=== PATIENT | female | born 1980 | race Caucasian/White ===

== ENCOUNTER 2018-01-21 15:41 | Outpatient (REF) | payer BC, SELFPAY ==
--- NOTE | 2018-01-21 15:00 | ENDO_PTH ---
PATIENT: Lina Glass LOC: [facility] U#:[id number] AGE/SX: 37/F ROOM: RE01/21/[address]: Jocelyne Mendoza : 1980 BED: DIS: 01/21/2018 SPEC #: [id number] RECD: 01/21/18 17:47 STATUS: ALEXANDRA REQ #: [id number] RALPH: 01/21/18 15:[address]: Jocelyne Mendoza DEPT: Surgical Specimen RECD BY: Eboni Bansal ENTERED: 01/21/18 17:49 SP TYPE: Endo OTHR DR: None Tissues: 1 - ENDOCERVICAL BX/CURRETTE 2 - CERVICAL BIOPSY 3 - CERVICAL BIOPSY Procedures: GROSS AND MICRO LEVEL 4 Comments: [id number]
== END 2018-01-21 15:42 ==
LOC: LBN 15:41
PROVIDERS: Visit Provider Obstetrics & Gynecology Gynecology
DX: N72 Inflammatory disease of cervix uteri (principal); N87.9 Dysplasia of cervix uteri, unspecified; R87.610 Atypical squamous cells of undetermined significance on cytologic smear of cervix (ASC-US)
CPT/HCPCS: 88305

== ENCOUNTER 2019-03-21 16:59 | Outpatient (REF) | payer OTHER, SELFPAY ==
--- NOTE | 2019-03-21 16:00 | PAPFT_PTH ---
PATIENT: Lina Glass LOC: [facility] U#:[id number] AGE/SX: 38/F ROOM: RE03/21/[address]: Chuy Bennett : 1980 BED: DIS: 03/21/2019 SPEC #: [id number] RECD: 03/21/19 18:38 STATUS: ALEXANDRA REQ #: [id number] RALPH: 03/21/19 16:[address]: Chuy Bennett DEPT: [facility] Cytology RECD BY: Eobni Bansal Tissues: 1 - CX/ENDOCX FOR PAP SMEARS Procedures: PAP THIN PREP/UVM Screening HPV DNA PROBE Comments: [id number]
== END 2019-03-21 17:19 ==
LOC: NCHCN 16:59
PROVIDERS: PCP Family Medicine; Visit Provider Family Medicine
DX: Z00.00 Encounter for general adult medical examination without abnormal findings (principal); Z12.4 Encounter for screening for malignant neoplasm of cervix; Z11.51 Encounter for screening for human papillomavirus (HPV)
CPT/HCPCS: 88142; 87624

== ENCOUNTER 2020-03-16 14:23 | Outpatient (REF) | payer BC, SELFPAY ==
[2020-03-19 07:21] LABS: Patient Race White; SARS-CoV-2 RNA Undetected (Undetected); SARS-CoV-2 Specimen Source Nasopharynx
== END 2020-03-16 14:43 ==
LOC: NCHCN 14:23
PROVIDERS: PCP Family Medicine; Visit Provider Nurse Practitioner Family
DX: Z11.59 Encounter for screening for other viral diseases (principal)
CPT/HCPCS: U0003

== ENCOUNTER 2022-05-23 10:16 | Outpatient (REF) | payer BC, SELFPAY ==
[2022-05-23 21:04] LABS: HCT 45.1 % (36.0-46.0); HGB 14.6 g/dL (11.2-15.7); MCH 29.1 pg (27.0-33.0); MCHC 32.4 % (32.0-36.0); MCV 90 fL (80-95); MPV 9.5 fL (8.0-11.0); Platelet Count 346 10^3/uL (130-400); RBC 5.01 10^6/uL (3.93-5.22); RDW 12.8 % (11.7-14.6); RDW-SD 42.4 fL; WBC 4.74 10^3/uL (4.4-10.8)
[2022-05-23 21:33] LABS: ALT 46 U/L (14-59); AST 30 U/L (15-37); Albumin 3.9 g/dL (3.4-5.0); Alkaline Phosphatase 64 U/L (46-116); BUN 11 mg/dL (7-18); Bilirubin, Total 0.3 mg/dL (0.2-1.0); CREATININE 0.9 mg/dL (0.55-1.02); Calcium 9.1 mg/dL (8.5-10.1); Calculated LDL 141 mg/dL (<100); Chloride 103 mmol/L (98-107); Cholesterol 264 mg/dL (<200); Estimated GFR 82.88 (mL/min/1.73m2); Ferritin 65 ng/mL (8-252); Glucose 137 mg/dL (74-106); HDL Cholesterol 54 mg/dL (40-60); Potassium 4.2 mmol/L (3.5-5.1); Sodium 138 mmol/L (136-145); TSH (W/Ref FT4) 0.79 uIU/mL (0.36-3.74); Total Protein 7.1 g/dL (6.4-8.2); Triglyceride 345 mg/dL (<150)
[2022-05-23 21:49] LABS: Hemoglobin A1C 5.5 % (<5.7)
[2022-05-27 10:26] LABS: Hepatitis C Ab w Rflx HCV PCR Negative (Negative)
== END 2022-05-23 10:17 | disposition home or self-care (01) ==
LOC: NCHCN 10:16
PROVIDERS: PCP Family Medicine; Visit Provider Family Medicine
DX: Z84.81 Family history of carrier of genetic disease (principal); Z00.00 Encounter for general adult medical examination without abnormal findings; R03.0 Elevated blood-pressure reading, without diagnosis of hypertension; Z13.1 Encounter for screening for diabetes mellitus; Z11.59 Encounter for screening for other viral diseases; Z13.220 Encounter for screening for lipoid disorders; Z13.29 Encounter for screening for other suspected endocrine disorder
CPT/HCPCS: 80053; 80061; 85027; 86803; 82728; 83036; 84443

== ENCOUNTER 2022-07-21 03:15 | Outpatient (CLI) | payer BC, SELFPAY ==
[2022-07-21] MEDS: Inhaler, Assist Device 1 EACH MC (14:21)
[2022-07-21] MEDS: Albuterol HFA 18 GM 200 PUFF INH IH (14:21)
--- NOTE | 2022-07-21 15:04 | W.PFT ---
Date of service: 07/21/22 Time of Service: 13:05 Pulmonary Function Test Result Requesting Provider Chuy Bennett Indications: Post COVID Interpretation Spirometry: There is no airflow limitation. There is no significant bronchodilator response. Lung Volumes: Normal lung volumes Diffusion Capacity: Normal diffusion Airway Pressure: Normal airways resistance. Impression Normal pulmonary function testing Clinical Correlation therefore is recommended.
== END 2022-07-21 03:16 | disposition home or self-care (01) ==
LOC: RT 03:15
PROVIDERS: PCP Family Medicine; Visit Provider Family Medicine
DX: R06.09 Other forms of dyspnea (principal); U09.9 Post COVID-19 condition, unspecified
CPT/HCPCS: 94060; 94726; 94729

== ENCOUNTER 2023-03-25 13:14 | Outpatient (REF) | payer BC, SELFPAY ==
[2023-03-25 14:43] LABS: Abs Immature Grans 0.06 10^3/uL (0.0-0.06); Absolute Basophil Count 0.05 10^3/uL (0.0-0.2); Absolute Eosinophil Count 0.31 10^3/uL (0.0-0.7); Absolute Lymphocyte Count 1.71 10^3/uL (1.2-3.4); Absolute Monocyte Count 0.39 10^3/uL (0.1-0.8); Absolute Neutrophil Count 3.54 10^3/uL (1.2-6.7); Basophils % 0.8; Eosinophils % 5.1; HCT 41.9 % (36.0-46.0); HGB 13.9 g/dL (11.2-15.7); Lymphocytes % 28.2; MCH 28.8 pg (27.0-33.0); MCHC 33.2 % (32.0-36.0); MCV 87 fL (80-95); MPV 8.9 fL (8.0-11.0); Monocytes % 6.4; Neutrophils % 58.5; Platelet Count 316 10^3/uL (130-400); RBC 4.82 10^6/uL (3.93-5.22); RDW 12.6 % (11.7-14.6); RDW-SD 39.9 fL; WBC 6.06 10^3/uL (4.4-10.8)
[2023-03-25 14:58] LABS: ALT 43 U/L (14-59); AST 23 U/L (15-37); Alkaline Phosphatase 56 U/L (46-116); BUN 12 mg/dL (7-18); Bilirubin, Total 0.3 mg/dL (0.2-1.0); C-Reactive Protein 0.11 mg/dL (0.0-0.3); CREATININE 0.9 mg/dL (0.55-1.02); Calcium 9.3 mg/dL (8.5-10.1); Chloride 103 mmol/L (98-107); Estimated GFR 82.88 (mL/min/1.73m2); Glucose 94 mg/dL (74-106); Potassium 4.5 mmol/L (3.5-5.1); Sodium 135 mmol/L (136-145); Total Protein 7.2 g/dL (6.4-8.2)
[2023-03-26 09:21] LABS: Lyme Ab w Rflx to Lyme Confirm Negative (Negative)
== END 2023-03-25 13:15 | disposition home or self-care (01) ==
LOC: NCHCN 13:14
PROVIDERS: PCP Family Medicine; Visit Provider Family Medicine
DX: A68.9 Relapsing fever, unspecified (principal)
CPT/HCPCS: 80053; 85025; 86140; 86618

== ENCOUNTER 2023-06-30 10:36 | Outpatient (REF) | payer BC, SELFPAY ==
--- NOTE | 2023-06-30 09:40 | PAPFT_PTH ---
PATIENT: Lina Glass LOC: [facility] U#:[id number] AGE/SX: 43/F ROOM: RE06/30/[address]: Chuy Bennett : 1980 BED: DIS: 06/30/2023 SPEC #: [id number] RECD: 07/01/23 12:53 STATUS: ALEXANDRA REQ #: [id number] RALPH: 06/30/23 09:[address]: Chuy Bennett DEPT: [facility] Cytology RECD BY: Eboni Bansal Tissues: 1 - CX/ENDOCX FOR PAP SMEARS Procedures: PAP THIN PREP/UVM Screening HPV DNA PROBE Comments: [id number] (CHLAMYDIA/GC)
[2023-06-30 16:03] LABS: Hemoglobin A1C 5.6 % (<5.7)
[2023-06-30 16:46] LABS: Calculated LDL 176 mg/dL (<100); Cholesterol 285 mg/dL (<200); HDL Cholesterol 55 mg/dL (40-60); Triglyceride 273 mg/dL (<150)
[2023-07-02 15:03] LABS: Chlamydia Result Negative (Negative); GC Result Negative (Negative)
== END 2023-06-30 10:37 | disposition home or self-care (01) ==
LOC: NCHCN 10:36
PROVIDERS: PCP Family Medicine; Visit Provider Family Medicine
DX: Z13.1 Encounter for screening for diabetes mellitus (principal); Z13.6 Encounter for screening for cardiovascular disorders
CPT/HCPCS: 80061; 87491; 87591; 88142; 83036; 87624

== ENCOUNTER → 2023-11-10 04:43 | Outpatient (CLI) | payer BC, SELFPAY ==
--- NOTE | 2023-11-10 | DI.MAMMO_ITS ---
Exam(s) MAMMO SCREENING EXAM: MAMMO SCREENING CLINICAL HISTORY: SCREENING, Z12.31,baseline TECHNIQUE: Bilateral full field digital CC and MLO mammographic images were obtained with 3D tomosyn thesis and utilizing computer aided detection (CAD). COMPARISON: This is a baseline examination. FINDINGS: Masses/Architectural Distortion: There are few scattered nodular densities in the breast. No suspici ous masses or areas of architectural distortion are seen. Microcalcifications: No suspicious pleomorphic-type are seen. Skin Thickening/Nipple Retraction: None. IMPRESSION: 1. No evidence for malignancy seen at this time. 2. Unless there is more urgent need, screening mammography is recommended, as per [place] [employer] guidelines. BI-RADS Category 2 - Benign Findings Breast Density - Category A - Almost entirely fatty Breast density category C or D implies that the patient has dense breast tissue. Dense breast tissue is very common and is not abnormal but dense breast tissue can make it harder to find cancer on a ma mmogram. Also, dense breast tissue may increase their breast cancer risk. This information about the result of the mammogram report was provided to the patient to raise their awareness. Use this report when you speak with the patient about their risks for breast cancer, which includes their family hist ory. At that time, you may recommend for more screening tests (Ultrasound or MRI) as they might be us eful based on their risk. A negative radiographic report should not delay biopsy if a dominant or clinically suspicious mass is present. Up to ten percent of cancers are not identified on mammography. A negative report may reinforce clinical impression. Adenosis and dense breasts may obscure an underlying neoplasm. False positive reports average 6 to 10%. Patient will receive a letter notifying them of these results.
== END ==
PROVIDERS: PCP Family Medicine; Visit Provider Family Medicine
DX: Z12.31 Encounter for screening mammogram for malignant neoplasm of breast (principal)
CPT/HCPCS: 77063; 77067

== ENCOUNTER 2024-01-10 17:37 | Emergency (ER) | payer BC, SELFPAY ==
[2024-01-10 17:39] VITALS: BP 188/102; PULSE 90; RESP 16; TEMP 37.2; O2SAT 95
--- NOTE | 2024-01-10 17:53 | W.ED.GENAD ---
Discharge Plan Disposition Patient Disposition: Home Condition: Stable Discharge Details Clinical Impression: Morbilliform rash Primary Care Provider: Chuy Bennett ED Provider: Rainer Haley Home Meds and New Rx's Prescriptions: Continued bupropion HCl [Wellbutrin SR] 100 MG tablet extended release 12 hr 100 mg PO BID Citalopram Hydrobromide [Citalopram HBr] 40 MG tablet 40 mg PO DAILY lamotrigine 100 mg tablet 50 mg PO DAILY Patient Comments: pt is tapering off Discharge Instructions Instructions: Skin Rash ED Additional Instructions: You were seen in the emergency department for your morbilliform rash that is likely due to to a drug eruption. Your labs are reassuring for no hypertensive emergency or endorgan damage occurring at this time, I recommend you continue weaning yourself off lamotrigine and continue your steroid taper. Please monitor yourself for any acute worsening like fever, coalescing redness into 1 large red lesion, any sloughing off of your skin and return to the ED immediately for such. A tick panel is pending as well as hepatitis panels, there is no elevation of your acute inflammatory markers that would indicate vasculitis as a cause. Referrals: Chuy Bennett [Primary Care Provider] - [facility] General Date/Time Provider Initiated Documentation: 01/10/24 17:49. HPI Narrative: 43 year-old female presents to ED today by POV/ambulating with her , recommended evaluation by PCP, with a chief complaint of ongoing morbilliform rash/possible drug eruption to entire body sparing the palms/soles/face, started on steroids with some hot flashes, fuzzy thoughts, mild blurred vision with BPs higher than normal in SBP 160s with onset noted for the past week or so. Patient is currently on prednisone taper and weaning off her lamotrigine which her PCP suspected the rash was due to even though she has been on it for years for depression. Quality described as mild itchiness, no radiation to overt fever, chest pain, shortness of breath, loss of vision, floaters, purulent drainage, or coalescing erythema. Severity is described as moderate to severe. Palliating factors include steroids and topicals. Provoking factors include nothing specific. Events leading up to the incident/Associated Symptoms: Patient denies new bedding/detergents/other environmental changes- co-sleeps and has no rash. Patient not anticoagulated. Related Data Home Medications ?Medication ?Instructions ?Recorded ?Confirmed Citalopram Hydrobromide 40 mg PO DAILY 01/21/18 01/10/24 [Citalopram HBr] bupropion HCl 100 mg tablet,12 hr 100 mg PO BID 01/21/18 01/10/24 sustained-release (Wellbutrin SR) lamotrigine 100 mg tablet 50 mg PO DAILY 01/10/24 01/10/24 Allergies Allergy/AdvReac Type Severity Reaction Status Date / Time No Known Allergies Allergy Unverified 01/10/24 18:01 General Stated Complaint: RashLesion [place]: 3 Review of Systems All systems reviewed & are unremarkable except as noted in HPI and below Exam Narrative Exam Narrative: GENERAL APPEARANCE: Well-nourished, non-toxic, awake and alert, atraumatic, no acute distress. SKIN: Warm, pink, dry, diffuse maculopapular rash resembling a morbilliform eruption, spares the palms and soles, spares the face, no purulent drainage, no coalescing erythema. HEAD: Normocephalic, atraumatic, normal hair distribution for gender/age. EYES: Normal conjunctiva, no exudates on lids/lashes. ENT: Nares patent, no circumoral cyanosis, no facial swelling NECK: Supple, trachea midline, painless cervical ROM. LUNGS/CHEST: Non-labored respirations, normal A/P diameter, symmetrical expansion, no chest wall deformity HEART (CV/PV): No peripheral edema, no JVD. ABDOMEN: Soft, non-distended, no guarding. MSK: Normal ROM, no swelling/deformity to bilateral UEs or LEs, moving all extremities without weakness, no cyanosis, spine midline without tenderness, normal curvature. NEURO: Mental Status AAOx4 - alert to person, place, time, events No facial droop, no forehead involvement. Motor: No focal weakness - strength 5/5 in bilateral UEs and LEs, proximal and distal, symmetric. Sensory: sensation intact to light touch globally. Gait normal: patient ambulated without ataxia into ED room. PSYCH: euthymic, cooperative, pleasant, appropriate speech Course Vital Signs Vital signs: Vital Signs Temperature 37.2 C 01/10/24 17:39 Pulse 90 01/10/24 17:39 Respiratory Rate 16 01/10/24 17:39 Blood Pressure 188/102 H 01/10/24 17:39 Pulse Oximetry 95 01/10/24 17:39 Temperature 37.2 C 01/10/24 17:39 Temperature Source Tympanic 01/10/24 17:39 Pulse 90 01/10/24 17:39 Respiratory Rate 16 01/10/24 17:39 Blood Pressure 188/102 H 01/10/24 17:39 Blood Pressure Position Sitting 01/10/24 17:39 Pulse Oximetry 95 01/10/24 17:39 Oxygen Delivery Method Room Air 01/10/24 17:39 Oxygen Flow Rate 0 01/10/24 17:39 Pain Level 0 01/10/24 17:39 Medical Decision Making This dictation utilizes [id number] dictation software and may contain unedited grammatical errors. 43 year-old female presents to ED today by POV/ambulating with her , recommended evaluation by PCP, with a chief complaint of ongoing morbilliform rash/possible drug eruption to entire body sparing the palms/soles/face, started on steroids with some hot flashes, fuzzy thoughts, mild blurred vision with BPs higher than normal in SBP 160s with onset noted for the past week or so. Patient is currently on prednisone taper and weaning off her lamotrigine which her PCP suspected the rash was due to even though she has been on it for years for depression. Quality described as mild itchiness, no radiation to overt fever, chest pain, shortness of breath, loss of vision, floaters, purulent drainage, or coalescing erythema. Severity is described as moderate to severe. Palliating factors include steroids and topicals. Provoking factors include nothing specific. Events leading up to the incident/Associated Symptoms: Patient denies new bedding/detergents/other environmental changes- co-sleeps and has no rash. Patients' medical history: Noncontributory. Family and social history: Noncontributory. Pertinent exam findings / vital signs include diffuse maculopapular rash resembling a morbilliform eruption, spares the palms and soles, spares the face, benign cardiopulmonary status, afebrile and nontoxic vitals, no purulent drainage, no coalescing erythema, no oral involvement Differential / pathologies of concern include drug eruption, dress syndrome, tickborne illness like Rickettsia, mono, unlikely measles, unlikely syphilis, hepatitis, vasculitis, unlikely SJS or TENS Diagnostic studies of: -CBC, BMP, urinalysis, troponin I, EKG, CRP/ESR, lipase, liver panel, monoscreen, hepatitis panel, tick and Lyme panel. -CBC shows no leukocytosis, no anemia mildly elevated neutrophils and mildly low lymphocytes -BMP shows a mildly increased creatinine of 1.2 -Troponin negative -Lactate and liver panel benign -CRP/ESR within normal limits -UA shows no proteinuria or hematuria, shows small leuk esterase with 0-2 WBCs on micro will await culture do not suspect severe UTI -EKG is normal sinus rhythm without any acute abnormalities do not suspect hypertensive emergency -Monoscreen negative -Hepatitis and tick and Lyme panel pending Interventions of: -None, recommend continuing steroids and taper of lamotrigine, strict return criteria for acute worsening. ED Course/Assessment/Plan: 43-year-old female presents with a diffuse morbilliform rash without signs of cellulitis or abscess, her PCP equates this with her long-term lamotrigine use and she is undergoing a trial weaning down from the 100 mg daily to 50 this week and then 0 next week. She is on steroid taper as well. I did certified genetic counselor her to continue with the primary care plan of treatment with strict return criteria for any acute worsening or signs of increasing fever, any skin sloughing. Counseled on negative workup for hypertensive emergency and her blood pressure is not even at the level of hypertensive urgency here, likely her symptoms of fuzzy thinking and some mild blurred vision and hot flashes are from her prednisone. Findings not consistent with overt dress syndrome, vasculitis, cellulitis or abscess, I do suspect possible drug eruption or early mild dress syndrome without endorgan damage, unlikely tickborne illness but it is on the differential and send outs are pending. Disposition of morbilliform rash. Patient verbalized understanding of the plan and return to ED criteria and engaged in shared decision making. Medical Records Medical records reviewed: Yes I reviewed the patient's medical records. Lab Data Lab results reviewed: Yes I reviewed the patient's lab results. Labs: Laboratory Tests Range/Units 01/10/24 01/10/24 18:23 18:58 WBC (4.4-10.8) 10^3/uL 9.91 RBC (3.93-5.22) 10^6/uL 4.90 Hgb (11.2-15.7) g/dL 14.5 Hct (36.0-46.0) % 42.4 MCV (80-95) fL 87 MCH (27.0-33.0) pg 29.6 MCHC (32.0-36.0) % 34.2 RDW (11.7-14.6) % 12.2 Plt Count (130-400) 10^3/uL 306 MPV (8.0-11.0) fL 8.8 Immature Gran % % 1.0 Neutrophils % % 79.5 Lymphocytes % % 11.0 Monocytes % % 2.1 Eosinophils % % 6.0 Basophils % % 0.4 Nucleated RBC % (0.0-0.3) % 0.0 Absolute Neutrophils (1.2-6.7) 10^3/uL 7.88 H Absolute Lymphocytes (1.2-3.4) 10^3/uL 1.09 L Absolute Monocytes (0.1-0.8) 10^3/uL 0.21 Absolute Eosinophils (0.0-0.7) 10^3/uL 0.59 Absolute Basophils (0.0-0.2) 10^3/uL 0.04 ESR (0-20) mm/hr 3 Sodium (136-145) mmol/L 139 Potassium (3.5-5.1) mmol/L 3.9 Chloride (98-107) mmol/L 102 Carbon Dioxide (21.0-32.0) mmol/L 28.7 Anion Gap (3-11) mmol/L 8.3 BUN (7-18) mg/dL 16 Creatinine (0.55-1.02) mg/dL 1.2 H Est GFR (CKD-EPI 2020) (mL/min/1.73m2) 58.32 Glucose (74-106) mg/dL 149 H Calcium (8.5-10.1) mg/dL 9.1 Total Bilirubin (0.2-1.0) mg/dL 0.32 Conjugated Bilirubin (0.0-0.2) mg/dL 0.1 AST (15-37) U/L 19 ALT (14-59) U/L 42 Alkaline Phosphatase (46-116) U/L 58 Troponin I (< or =60) ng/L < 50 C-Reactive Protein (<or=0.5) mg/dL < 0.50 Total Protein (6.4-8.2) g/dL 7.4 Albumin (3.4-5.0) g/dL 4.0 Lipase (16-77) U/L 32 Urine Color (Yellow) Yellow Urine Clarity (Clear) Clear Urine pH (5-8) 5.5 Ur Specific [place] (1.005-1.025) 1.015 Urine Protein (Neg-Trace) mg/dL Negative Urine Ketones (Negative) mg/dL Negative Urine Blood (Negative) Negative Urine Nitrite (Negative) Negative Urine Bilirubin (Negative) Negative Urine Urobilinogen (Up to 0.2) mg/dL 0.2 Ur Leukocyte Esterase (Negative) Small H Urine RBC (0-2) HPF Negative Urine WBC (0-5) HPF 0-2 Ur Epithelial Cells (Negative) HPF Moderate Urine Crystals (Negative) HPF Negative Urine Bacteria (Negative) HPF Few Urine Casts (Negative) LPF Negative Urine Mucus (Negative) Negative Ur Culture Indicated? No/Sq. Contamination Urine Glucose (Negative) mg/dL Negative Monoscreen (Negative) Negative Quality:SDOH Health Related Social Needs: No Data to Display PFSH All Active Problems (Updated 01/10/24 @ 20:03 by ANN-MARIE Mcdonnell) Morbilliform rash (Acute) Medical History (Updated 01/10/24 @ 20:03 by ANN-MARIE Mcdonnell) Vulvar warts Night sweats Excess skin of abdomen Warts, genital Trochanteric bursitis Dermatitis HPV test positive Pap smear of cervix with ASCUS, cannot exclude HGSIL Abnormal Pap smear of cervix ASCUS-H. + HPV. 12/2017 Colpo bx: No KENNY. Depression Social History Smoking/Tobacco Use Status: Current every day Smoking risk assessment performed?: Yes Alcohol Intake: former Drug use: Never Housing: apartment Do you feel safe at home: Yes Do you feel safe in your relationship?: Yes
--- NOTE | 2024-01-10 18:00 | RT.EKG_ITS ---
APPROVED REPORT Exam: Resting ECG Reason for Exam: baseline/screening Patient Location: E HR:74 bpm ECG Measurements Heart Rate 74 AXIS IA 149 P 25 QRSd 89 QRS 36 QT 372 T 24 QTc 413 Conclusion Sinus rhythm...normal P axis, V-rate 60- 99 Narrow complex normal sinus rhythm at a rate of 74. Normal axis. Intervals within normal limits. N o ST segment abnormalities. No acute injury pattern. No prior for comparison.
[2024-01-10 18:38] LABS: Absolute Basophil Count 0.04 10^3/uL (0.0-0.2); Absolute Eosinophil Count 0.59 10^3/uL (0.0-0.7); Absolute Lymphocyte Count 1.09 10^3/uL (1.2-3.4); Absolute Monocyte Count 0.21 10^3/uL (0.1-0.8); Absolute Neutrophil Count 7.88 10^3/uL (1.2-6.7); Basophils % 0.4 %; HCT 42.4 % (36.0-46.0); HGB 14.5 g/dL (11.2-15.7); MCH 29.6 pg (27.0-33.0); MCHC 34.2 % (32.0-36.0); MCV 87 fL (80-95); MPV 8.8 fL (8.0-11.0); Monocytes % 2.1 %; Neutrophils % 79.5 %; Platelet Count 306 10^3/uL (130-400); RDW 12.2 % (11.7-14.6); RDW-SD 39.1 fL; WBC 9.91 10^3/uL (4.4-10.8)
[2024-01-10 18:45] LABS: Anion Gap 8.3 mmol/L (3-11); BUN 16 mg/dL (7-18); CO2 28.7 mmol/L (21.0-32.0); CREATININE 1.2 mg/dL (0.55-1.02); Calcium 9.1 mg/dL (8.5-10.1); Chloride 102 mmol/L (98-107); ESR 3 mm/hr (0-20); Estimated GFR 58.32 (mL/min/1.73m2); Glucose 149 mg/dL (74-106); Potassium 3.9 mmol/L (3.5-5.1); Sodium 139 mmol/L (136-145)
[2024-01-10 18:48] LABS: ALT 42 U/L (14-59); AST 19 U/L (15-37); Alkaline Phosphatase 58 U/L (46-116); Bilirubin, Direct 0.1 mg/dL (0.0-0.2); Bilirubin, Total 0.32 mg/dL (0.2-1.0); Lipase 32 U/L (16-77); Total Protein 7.4 g/dL (6.4-8.2)
[2024-01-10 18:51] LABS: C-Reactive Protein < 0.50 mg/dL (<or=0.5)
[2024-01-10 18:54] LABS: Troponin I < 50 ng/L (< or =60)
[2024-01-10 19:19] LABS: Mono Screening Negative (Negative)
[2024-01-10 19:20] VITALS: BP 160/62; PULSE 70
[2024-01-10 19:24] LABS: Bilirubin Negative (Negative); Blood Negative (Negative); Clarity Clear (Clear); Glucose Negative (Negative); Ketones Negative (Negative); Leukocyte Esterase Small (Negative); Nitrite Negative (Negative); Specific Gravity 1.015 (1.005-1.025); Urobilinogen 0.2 mg/dL (Up to 0.2); pH 5.5 (5-8)
[2024-01-10 19:31] LABS: Bacteria Few HPF (Negative); C & S Indicated? No/Sq. Contamination; Casts Negative LPF (Negative); Crystals Negative HPF (Negative); Epithelial Cells Moderate HPF (Negative); Mucus Negative (Negative); RBC Negative HPF (0-2); WBC 0-2 HPF (0-5)
[2024-01-11 21:14] LABS: Hepatitis A Antibody IgM Negative (Negative); Hepatitis B Core Antibody Positive (Negative); Hepatitis B surface Ag Negative (Negative); Hepatitis C Ab w Rflx HCV PCR Negative (Negative)
[2024-01-12 10:26] LABS: Lyme Ab w Rflx to Lyme Confirm Negative (Negative)
[2024-01-13 21:40] LABS: HBc IgM Ab, S Negative (Negative)
[2024-01-15 22:18] LABS: Anaplasma phagocytophilum Negative (Negative); B. miyamotoi PCR Negative (Negative); Babesia divergens/MO-1 Negative (Negative); Babesia duncani Negative (Negative); Babesia microti Negative (Negative); Ehrlichia chaffeensis Negative (Negative); Ehrlichia ewingii/canis Negative (Negative); Ehrlichia muris eauclairensis Negative (Negative)
== END 2024-01-10 20:13 | disposition home or self-care (01) ==
LOC: ER 20:04
PROVIDERS: Emergency Provider Physician Assistant; PCP Family Medicine
DX: T42.6X5A Adverse effect of other antiepileptic and sedative-hypnotic drugs, initial encounter (principal); L27.0 Generalized skin eruption due to drugs and medicaments taken internally; F17.200 Nicotine dependence, unspecified, uncomplicated
CPT/HCPCS: 36415; 80048; 80076; 83690; 85652; 86704; 86709; 86803; 87340; 87798; 93005; 99284; 81003; 81015; 84484; 85025; 86140; 86308; 86618; 86705; 93010; 99283

== ENCOUNTER 2024-04-15 09:10 | Outpatient (CLI) | payer BC, SELFPAY ==
[2024-04-15 08:58] LABS: ALT 46 U/L (14-59); AST 23 U/L (15-37); Albumin 3.9 g/dL (3.4-5.0); Alkaline Phosphatase 61 U/L (46-116); Anion Gap 9.3 mmol/L (3-11); BUN 10 mg/dL (7-18); Bilirubin, Total 0.46 mg/dL (0.2-1.0); CO2 28.7 mmol/L (21.0-32.0); CREATININE 0.9 mg/dL (0.55-1.02); Calcium 8.6 mg/dL (8.5-10.1); Chloride 103 mmol/L (98-107); Estimated GFR 81.86 (mL/min/1.73m2); Glucose 101 mg/dL (74-106); Potassium 4.3 mmol/L (3.5-5.1); Sodium 141 mmol/L (136-145); Total Protein 7.4 g/dL (6.4-8.2)
[2024-04-15 18:42] LABS: Hepatitis B Surface Ag Negative (Negative)
[2024-04-15 21:12] LABS: HBs Antibody, Quant 67.3 mIU/mL (See Note); Hepatitis B Surface Ab Positive (See Note)
[2024-04-15 21:53] LABS: Hep B Core Antibody Negative (Negative)
== END 2024-04-15 09:11 | disposition home or self-care (01) ==
LOC: LBO 09:10
PROVIDERS: PCP Nurse Practitioner Family; Visit Provider Nurse Practitioner Family
DX: R76.8 Other specified abnormal immunological findings in serum (principal); R94.4 Abnormal results of kidney function studies
CPT/HCPCS: 36415; 80053; 86704; 86706; 87340

== ENCOUNTER 2025-04-20 12:37 | Outpatient (REF) | payer BC, SELFPAY ==
[2025-04-20 16:01] LABS: ALT 26 U/L (10-49); AST 24 U/L (<34); Albumin 4.4 g/dL (3.4-5.0); Alkaline Phosphatase 47 U/L (46-116); Anion Gap 6.1 mmol/L (3-11); BUN 8 mg/dL (9-23); Bilirubin, Total 0.40 mg/dL (0.2-1.2); CO2 26.9 mmol/L (20.0-31.0); Calcium 9.2 mg/dL (8.3-10.6); Chloride 106 mmol/L (98-107); Cholesterol 228 mg/dL (<200); Glucose 77 mg/dL (74-106); HDL Cholesterol 48 mg/dL (>40); Potassium 4.5 mmol/L (3.5-5.1); Sodium 139 mmol/L (136-145); Total Protein 6.8 g/dL (5.7-8.2)
[2025-04-20 16:34] LABS: Hemoglobin A1C 4.9 % (<5.7)
== END 2025-04-20 12:38 | disposition home or self-care (01) ==
LOC: NCHCN 12:37
PROVIDERS: PCP Nurse Practitioner Family; Visit Provider Nurse Practitioner Family
DX: Z00.00 Encounter for general adult medical examination without abnormal findings (principal)
CPT/HCPCS: 80053; 80061; 83036

== ENCOUNTER → 2025-05-15 00:14 | Outpatient (CLI) | payer BC, SELFPAY ==
--- NOTE | 2025-05-15 07:45 | DI.MAMMO_ITS ---
Exam(s) MAMMO SCREENING EXAM: MAMMO SCREENING CLINICAL HISTORY: SCREENING,Z12.31 TECHNIQUE: Bilateral full field digital CC and MLO mammographic images were obtained with 3D tomosynthesis and utilizing computer aided detection (CAD). COMPARISON: Comparison is made with prior examinations. FINDINGS: Masses/Architectural Distortion: No suspicious masses or areas of architectural distortion are present. There are stable nodular densities in the breasts. Microcalcifications: No suspicious pleomorphic-type are seen. Skin Thickening/Nipple Retraction: None. IMPRESSION: 1. No significant interval change with no specific features of malignancy noted. 2. Unless there is more urgent need, screening mammography is recommended, as per [employer] guidelines. BI-RADS Category 2 - Benign Findings Breast Density - Category B - There are scattered areas of fibroglandular density. Breast density Category C or D implies that the patient has dense breast tissue. Dense breast tissue can make it harder to find cancer on a mammogram. Dense breast tissue is also associated with an increased risk of breast cancer. This information about the result of the mammogram report was provided to the patient to raise their awareness. Use this report when you speak with the patient about their risks for breast cancer, which includes their family history. At that time, you may recommend additional screening tests (Ultrasound or MRI) as these tests may add significant information. A negative radiographic report should not delay biopsy if a dominant or clinically suspicious mass is present. Up to ten percent of cancers are not identified on mammography. A negative report may reinforce clinical impression. Adenosis and dense breasts may obscure an underlying neoplasm. False positive reports average 6 to 10%. Patient will receive a letter notifying them of these results.
== END ==
PROVIDERS: PCP Nurse Practitioner Family; Visit Provider Nurse Practitioner Family
DX: Z12.31 Encounter for screening mammogram for malignant neoplasm of breast (principal)
CPT/HCPCS: 77063; 77067